=== PATIENT | female | born 1950 | race Caucasian/White ===

== ENCOUNTER 2017-12-03 12:03 | Observation (INO) | payer MEDICARE, OTHER ==
--- NOTE | 2017-12-03 12:28 | ED ---
Hypertension - HPI Summary HPI Summary: This patient is a 67 year old F presenting to [facility] accompanied by Sigfreind her with a chief complaint of dizziness that began 3 days ago. She states along with this she has been experiencing rise and falls in her BP. The patient has had some jaw pain and headache, but no chest pain and rates the pain 2/10 in severity. Symptoms aggravated by nothing. Symptoms alleviated by nothing. Pt is a type II DM and states her glucose was over 200 this am, and this is high for her. Patient reports anxiety, light headedness, tense all over, and mild right sided jaw pain that has been intermittent for years. She also c/o right quadricep weakness that has been intermittent for some time. She had a TEMPLE yesterday that has gotten better but is still present. Patient denies CP, SOB, near syncope, trouble ambulating, and speech difficulty. This morning she had a pulse of 76bpm and 82bpm with walking, she states this morning her BP was 203/106. Dr. Omayra Gil told her to keep a log of her BP. She has the log with her. She states she is stressed about her daughters bridal shower this weekend and this has created anxiety. Her typical systolic is 130-140, per her. Dr. Aceves told her to take 3 x 100mg labetalol (instead of her usual 200mg) when she called for elevated blood pressure greater than 180 sytolic and greater than 110 diastolic. She took that yesterday and her BP was 111 systolic after the medication, and with this BP she was fatigued. She has never had an NE and her last stress test was in [address] George on his office on [facility]. 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 Currently they are watching an inactive mass on her left adrenal. Dr. Gil talked to Dr. Vance in [place] about this adrenal mass and her lab results and he told her she does not have another pheochromocytoma. Pt takes 100mg labetalol BID, 81 mg asa QD, omeprazole 20 mg QD, pravastatin 40 MG, losartan 100 mg, QD. This morning at 0840 she had BG over 200 and took one ER metformin 500 mg. After this her BG was 117 at 1110. Vital signs while in room: HR 81 bpm, BP 187/105. Hx of Lyme disease, pheochromocytoma s/p surg, hematuria, DM 2, HTN, and goiter. Family history of NE, cancer, kidney failure, and CVA. Labetalol TAB* [Trandate TAB*] 150 mg PO BID 08/20/12 [History Confirmed ] Pravastatin Sodium 40 mg PO QPM 08/20/12 [History Confirmed 12/22/14] Ubidecarenone/Vit E Acet [Co Q 10] 100 mg PO BID 08/20/12 [History Confirmed 06/02] metFORMIN* [Glucophage*] 500 mg PO BID 08/20/12 [History Confirmed 12/22/14] Cholecalciferol TAB* [Vitamin D TAB*] 1,000 unit PO EVERY OTHER DAY 11/05/12 [ History Confirmed 12/22/14] EPINEPHrine PEN ADULT(NF) [Epipen ADULT(NF)] 0.3 mg IM DAILY 11/05/12 [History Confirmed 12/22/14] diPHENhydraMINE PO* [Benadryl TAB*] 25 mg PO Q6H PRN 11/05/12 [History Confirmed 12/22/14] Aspirin EC TAB* [Ecotrin EC Low Dose 81 MG*] 81 mg PO DAILY 03/09/13 [History Confirmed 12/22/14] Cyanocobalamin [Vitamin B-12] 1,000 mcg PO EVERY OTHER DAY 03/09/13 [History Confirmed 12/22/14] Manganese 1 tab PO DAILY 03/09/13 [History Confirmed 12/22/14] Milk Thistle-Turmeric [Silymarin] 1 cap PO DAILY 03/09/13 [History Confirmed 06/02] Multivitamins/Minerals TAB* [Thera M Plus TAB*] 1 tab PO DAILY 03/09/13 [ History Confirmed 12/22/14] Vitamin B Complex CAP* [B Complex CAP*] 1 cap PO DAILY 03/09/13 [History Confirmed 12/22/14] Losartan TAB* [Cozaar TAB*] 100 mg PO DAILY 04/26/13 [History Confirmed 12/22/14 ] Iron 45 mg PO EVERY OTHER DAY 05/07/14 [History Confirmed 12/22/14] LORazepam TAB(*) [Ativan TAB(*)] 0.5 mg PO TID PRN 05/07/14 [History Confirmed 12/22/14] - History of Current Complaint Chief Complaint: EDDizziness Stated Complaint: LITE HEADED/TENSE ALL OVER/JAW PAIN Time Seen by Provider: 12/03/17 12:12 Hx Obtained From: Patient, Family/Product Applications Scientist - Onset/Duration: Started Days Ago, Still Present Timing: Constant, Intermittent Reported Blood Pressure Prior To Arrival: 203/106 Aggravating Factor(s): Nothing Alleviating Factor(s): Nothing Associated Signs & Symptoms: Negative - CP, SOB, near syncope, trouble ambulating, and speech difficulty., Anxiety/Stress, Other: - anxiety, light headed, tense all over, and mild right sided jaw pain that has been intermittent for years - Allergies/Home Medications Allergies/Adverse Reactions: Allergies Allergy/AdvReac Type Severity Reaction Status Date / Time Penicillins Allergy Intermediate Unknown Verified 06/11/17 17:53 Reaction Details ciprofloxacin [From Cipro] Allergy Agitation Verified 06/11/17 17:53 Latex, Natural Rubber Allergy Rash And Verified 06/11/17 17:53 Itching Iodinated Contrast- Oral and AdvReac Nausea And Verified 06/11/17 17:53 IV Dye Vomiting basil Allergy Severe Anaphylatic Uncoded 06/10/17 11:51 Shock pomagranate Allergy Mild GI Upset Uncoded 06/10/17 11:51 WASPS Allergy Swelling Uncoded 06/10/17 11:50 lobster AdvReac Intermediate Stomach Uncoded 06/10/17 11:51 Cramps Home Medications: Home Medications Biotin 1 mg PO QPM 12/03/17 [History Confirmed 12/03/17] Cholecalciferol (Vitamin D3) [Vitamin D3] 1,000 unit PO QPM 12/03/17 [History Confirmed 12/03/17] Cyanocobalamin TAB* [Vitamin B12 TAB*] 1,000 mcg PO DAILY 12/03/17 [History Confirmed 12/03/17] Iron 27 mg PO BID 12/03/17 [History Confirmed 12/03/17] Labetalol TAB* [Trandate TAB*] 200 mg PO BID 12/03/17 [History Confirmed ] Losartan TAB* [Cozaar TAB*] 100 mg PO QPM 12/03/17 [History Confirmed 12/03/17] Magnesium Oxide [Magnesium] 250 mg PO QAM 12/03/17 [History Confirmed 12/03/17] Metformin ER (NF) 1,000 mg PO BID 12/03/17 [History Confirmed 12/03/17] Milk Thistle 600 mg PO DAILY 12/03/17 [History Confirmed 12/03/17] Multivitamins/Minerals TAB* [Theragran/minerals TAB*] 1 tab PO DAILY 12/03/17 [ History Confirmed 12/03/17] Omeprazole CAP* [Prilosec CAP* 20 MG] 20 mg PO BEDTIME 12/03/17 [History Confirmed 12/03/17] Pravastatin (NF) [Pravachol (NF)] 40 mg PO QPM 12/03/17 [History Confirmed 12/03] Ubidecarenone [Coenzyme Q10] 200 mg PO DAILY 12/03/17 [History Confirmed ] Vitamin B Complex CAP* [B Complex CAP*] 1 cap PO DAILY 12/03/17 [History Confirmed 12/03/17] metFORMIN* [Glucophage 500 MG TAB *] 500 mg PO DAILY PRN 12/03/17 [History Confirmed 12/03/17] PMH/Surg Hx/FS Hx/Imm Hx Previously Healthy: No Endocrine/Hematology History: Reports: Hx Diabetes Denies: Hx Blood Disorders, Hx Thyroid Disease, Hx Anemia Cardiovascular History: Reports: Hx Angina, Hx Hypertension Denies: Hx Congestive Heart Failure, Hx Coronary Artery Disease, Hx Hypercholesterolemia, Hx Myocardial Infarction, Hx Pacemaker/ICD, Hx Valvular Heart Disease, Other Cardiovascular Problems/Disorders Respiratory History: Reports: Hx Asthma, Hx Chronic Bronchitis - But not in a long time, Hx Pleural Effusion - after pheochromocytoma surgery when "her diaphragm was nicked", Hx Seasonal Allergies GI History: Reports: Hx Gastroesophageal Reflux Disease, Other GI Disorders - Polyps removed from colon. constipation History: Reports: Hx Kidney Infection - 1981, Hx Renal Disease, Other Problems/Disorders - uterine cancer, bladder cyst removal,complete hysterectomy , nephritis, pheo Musculoskeletal History: Reports: Hx Arthritis, Hx Back Problems Denies: Other Musculoskeletal History Sensory History: Reports: Hx Contacts or Glasses Denies: Hx Hearing Aid, Other Sensory Impairments Opthamlomology History: Reports: Hx Contacts or Glasses Denies: Other Sensory Impairments Psychiatric History: Reports: Hx Anxiety - Comes and goes, Hx Depression - but not since she retired, Hx Panic Disorder - ANXIETY Denies: Hx Suicide Attempt, Hx of Violent Episodes Against Others, Hx Substance Abuse, Other Psychiatric Issues/Disorders - Cancer History Cancer Type, Location and Year: UTERINE Hx Chemotherapy: No Hx Radiation Therapy: No - Surgical History Surgery Procedure, Year, and Place: TONSILS. HERNIA AGE 3. TUBAL LIGATION. 2010 HYSTERECTOMY. 2012 RIGHT ADRENAL REMOVED (PHEOCHROMOCYTOMA) Hx Anesthesia Reactions: No - Immunization History Date of Tetanus Vaccine: Up to date Date of Influenza Vaccine: Fall 2012 Infectious Disease History: No Infectious Disease History: Denies: Traveled Outside the [place] in Last 30 Days - Family History Known Family History: Positive: Cardiac Disease - father of NE at 69 , Renal Disease, Other - CVA and cancer - Social History Lives: With Family Alcohol Use: None Substance Use Type: Reports: None Smoking Status (MU): Never Smoked Tobacco Review of Systems Positive: Fatigue Negative: Blurred Vision Positive: Other - jaw pain on right, recent second molar extraction right lower at site of pain Positive: Other - elevated BP . Negative: Chest Pain Negative: Shortness Of Breath Positive: Other - tense all over, and mild intermittent right sided jaw Neurological: Negative - trouble ambulating or speech difficulty , Other - dizziness and light headedness Positive: Headache, Weakness - right thigh for awhile . Negative: Syncope Positive: Anxious All Other Systems Reviewed And Are Negative: Yes Physical Exam - Summary Physical Exam Summary: Appearance: Well-appearing, minimal pain distress, well-nourished, hypertensive Skin: Warm, color reflects adequate perfusion, dry Head: Normal Head/Face inspection, atraumatic Eyes: Conjunctiva clear, Pupils 3mm and reactive, EOMI, no nystagmus ENT: Normal inspection, TM's are normal, moist mucosa, site of second molar extraction right lower is not tender, inflamed, or swollen and there is no drainage. No jaw swelling or redness Neck: Supple, no nodes, no JVD Respiratory: Lungs clear, normal breath sounds, no respiratory distress Cardio: RRR, No murmur, pulses normal, brisk capillary refill Abdomen: Soft, nontender Bowel sounds: Present Musculoskeletal: Strength Intact/ROM intact, no calf tenderness, no edema. Psychological: states she is anxious. Neuro: A&O x3, CN II-XII intact, motor function 5/5, sensation intact, cerebellar normal Triage Information Reviewed: Yes Vital Signs On Initial Exam: Initial Vitals Temp Pulse Resp BP Pulse Ox 97.8 F 87 16 142/87 100 12/03/17 12:09 12/03/17 12:09 12/03/17 12:09 12/03/17 12:09 12/03/17 12:09 Vital Signs Reviewed: Yes - [place] Coma Scale Best Eye Response: 4 - Spontaneous Best Motor Response: 6 - Obeys Commands Best Verbal Response: 5 - Oriented Coma Scale Total: 15 Diagnostics - Vital Signs Vital Signs Temp Pulse Resp BP Pulse Ox 12/03/17 12:09 97.8 F 87 16 142/87 100 - Laboratory Result Diagrams: 12/04/17 06:41 12/04/17 06:41 Lab Statement: Any lab studies that have been ordered have been reviewed, and results considered in the medical decision making process. - Radiology CXR Radiology Interpretation Completed By: Radiologist - SMALL RIGHT PLEURAL EFFUSION ED physician has reviewed this radiology report. - CT CT brain CT Interpretation Completed By: Radiologist - NO EVIDENCE FOR ACUTE INTRACRANIAL ABNORMALITY. ED physician has reviewed this radiology report. - EKG 12:36 Cardiac Rate: NL EKG Rhythm: Sinus Rhythm - at [address] Segment: Non-Specific Ectopy: None EKG Interpretation: nml AV/IV CT, nml QTc, and nml axis EKG Comparison: No Significant Change - No change from EKG done on 12-22-14. 1626 Cardiac Rate: NL EKG Rhythm: Sinus Rhythm - at [address] Segment: Non-Specific Ectopy: None EKG Interpretation: nml AV/IV CT, nml QTc, and nml axis. No stemi EKG Comparison: No Significant Change - from earlier today, done when elevated troponin returned. Re-Evaluation - Re-Evaluation First Eval Re-Evaluation Time: 13:36 Change: Improved Comment: BP 138/85, pulse 75. I informed the patient of all test results. I also sent out a call to Dr. Gil at this time. Second Eval Re-Evaluation Time: 14:01 Change: Unchanged Comment: Patient feels tired and still has right jaw pain. I looked in her mouth , there is a dental extraction second molar on right lower mandible. There are no signs of infection and the jaw pain is not reproducible when touching that site. She rates the pain 1/10. BP is 158/85 Third Eval Re-Evaluation Time: 15:15 Change: Unchanged Comment: She states during her pheo operation, she had pleural fluid drained from her because "they nicked her diaphragm". Pulse of 77. O2 sat 98%. She has no CP, SOB, or fever. BP of 191/98. Fourth Eval Re-Evaluation Time: 15:46 Change: Unchanged Comment: BP 180/95 and pulse 77. She is anxious and I discussed giving her amlodipine now in the ED and starting it as a new med, per Dr. Gil. She has no jaw pain or CP. Fifth Eval Re-Evaluation Time: 16:28 Change: Worse Comment: BP is 204/120 and pulse is 80 BPM. Pt denies CP and jaw pain. Pt is informed of the elevated troponin and plan to admit. Hypertension Course/Dx - Course Assessment/Plan: Pt comes in with elevated BP, jaw pain, and dizziness. An EKG at 12:36 reveals nml AV/IV CT, nml QTc, and nml axis. No change from EKG done on 12-22-14. A second EKG at 1626 reveals nml AV/IV CT, nml QTc, and nml axis. No STEMI. CXR reveals, per radiologist, SMALL RIGHT PLEURAL EFFUSION. Pt has a hx of right pleural effusion at time of pheo operation in 2012. CT Brain reveals, per radiologist, NO EVIDENCE FOR ACUTE INTRACRANIAL ABNORMALITY. Aware of lactic of 2.1 at 1308. Aware of trop of 0.08 at 1618. Given amlodipine 5mg for HTN. Her second troponin is elevated so pt will be admitted for possible unstable angina, ACS, or angina equivalent. It is not a STEMI. Her HTN will need additional monitoring and control also. COURSE: We discussed patient care with Dr. Gil I informed her of the patients case. She recommended review previous CXRs and she would like to be informed of the radiologists opinion of the comparisons. We discussed patient care with Dr Smyth and he states the pleural effusion is new. He did compare it to prior CXRs. I discussed patient care with Dr. Gil I informed her that the pleural effusion is new and inquired about admission. She would like to know the procalcitonin and CRP results, when the are done. (They are both normal). I discussed patient care with Dr. Gil and informed her of the patients lab values. She suggested starting her on amlodipine 5 mg and planned to see her in the office on 12-05-17. Then pt's second troponin returned and it was elevated so discussed with Dr. Gil who recommends admit hospitalist and she will see pt in the am. The pt is admitted with HTN urgency, elevated troponin, dizziness, right pleural effusion, jaw pain, eval for ACS, unstable angina. I discussed patient care with Dr. Jay and she has accepted the patient for admission. Patient will be admitted to Dr. Jay. The patient is agreeable with this plan - Diagnoses Differential Diagnosis/HQI PQRI: Angina, Cerebral Bleed, Hypertension, Hypertensive Urgency, Myocardial Infarction Provider Diagnoses: Hypertensive urgency, Jaw pain, Elevated troponin, Dizziness, Pleural effusion , right - Physician Notifications Discussed Care Of Patient With: Jeri Gil Time Discussed With Above Provider: 13:38 Instructed by Provider To: Other - We discussed patient care with Dr. Gil I informed her of the patients case. She recommended review previous CXRs and she would like to be informed of the radiologists opinion of the comparisons. - Critical Care Time Critical Care Time: 30-74 min Discharge - Sign-Out/Discharge Documenting (check all that apply): Patient Departure - admit - Discharge Plan Condition: Stable Disposition: ADMITTED TO [facility] - Billing Disposition and Condition Condition: STABLE Disposition: Admitted to [facility] - Attestation Statements Document Initiated by Bertha: Yes Documenting Scribe: Serafin Lozano Provider For Whom Bertha is Documenting (Include Credential): Dr. Wen Seay MD Scribe Attestation: Serafin Yepez screctored for Dr. Wen Seay MD on 12/05/17 at 1757. Scribe Documentation Reviewed: Yes Provider Attestation: The documentation as recorded by the Serafin fuentes accurately reflects the service I personally performed and the decisions made by me, Dr. Wen Seay MD Consult Consult: 2099 We discussed patient care with Dr Smyth and he states the pleural effusion is new. He did compare it to prior CXRs. 1501 I discussed patient care with Dr. Gil I informed her that the pleural effusion is new and inquired about admission. She would like to know the procalcitonin and CRP results, when they are done. (They are normal) 1534 I discussed patient care with Dr. Gil and informed her of the patient s lab values. She suggested starting her on amlodipine 5 mg and she planned to see her in the office on 12-05-17. 1623 I discussed elevated troponin with Dr. Gil. She recommends admit hospitalist and she will see pt in the am. 1624 I discussed patient care with Dr. Jay and she has accepted the patient for admission.
[2017-12-03 12:48] LABS: ABS Basophils 0.1 10^3/ul (0-0.2); ABS Eosinophils 0.2 10^3/ul (0-0.6); ABS Lymphocytes 1.5 10^3/ul (1.0-4.8); ABS Monocytes 0.5 10^3/ul (0-0.8); ABS Neutrophils 3.5 10^3/ul (1.5-7.7); ABS Nucleated RBC 0 10^3/ul; Eosinophil % 3.9 % (0-6); Hematocrit 34 % (35-47); Hemoglobin 11.4 g/dl (12.0-16.0); Lymphocyte % 25.4 % (25-47); Mean Corpuscular HGB Conc 33 g/dl (31-36); Mean Corpuscular Hemoglobin 27 pg (27-31); Mean Corpuscular Volume 80 fL (80-97); Mean Platelet Volume 8.2 um3 (7.4-10.4); Nucleated Red Blood Cells % 0.1; Platelet Count 230 10^3/ul (150-450); Red Blood Count 4.27 10^6/ul (4.00-5.40); Red Cell Distribution Width 15 % (10.5-15); White Blood Count 5.8 10^3/ul (3.5-10.8)
[2017-12-03 13:06] LABS: EGFR Non-African American 51.4 (>60)
--- NOTE | 2017-12-03 13:12 | RAD ---
INDICATION: Hypertensive urgency, dizziness. COMPARISON: Comparison is made with a prior CT of the brain from July 22, 2008. TECHNIQUE: Contiguous axial sections of the brain were obtained from the skull base to the vertex without contrast. FINDINGS: The ventricles, cisterns and sulci are within normal limits. No significant focal abnormality or mass effect is seen. There is no evidence for hemorrhage. No significant focal osseous abnormality is seen. The visualized portion of the paranasal sinuses and mastoid air cells appear clear. IMPRESSION: NO EVIDENCE FOR ACUTE INTRACRANIAL ABNORMALITY.
--- NOTE | 2017-12-03 13:30 | RAD ---
HISTORY: HTN COMPARISONS: None VIEWS: 1: frontal AP view of the chest at 12:55 PM FINDINGS: LINES AND TUBES: None. CARDIOMEDIASTINAL SILHOUETTE: The cardiomediastinal silhouette is normal for portable technique. PLEURA: There is blunting of the right costophrenic angle. LUNG PARENCHYMA: The lungs are clear. ABDOMEN: The upper abdomen is clear. There is no subphrenic gas. BONES AND SOFT TISSUES: No bone or soft tissue abnormalities are noted. IMPRESSION: SMALL RIGHT PLEURAL EFFUSION
[2017-12-03] MEDS ORDERED: amLODIPine TAB* 5 MG PO ONE (15:39)
[2017-12-03 15:47] LABS: Urine Appearance Cloudy; Urine Blood Negative (Negative); Urine Color Yellow; Urine Ketones Negative (Negative); Urine Protein Negative (Negative); Urine Red Blood Cell Trace(0-2/hpf) (Absent); Urine Specific Gravity 1.009 (1.010-1.030); Urine Urobilinogen Negative (Negative); Urine White Blood Cell Trace(0-5/hpf) (Absent)
[2017-12-03] MEDS ORDERED: Morphine INJ* 4 MG/ML 1 ML SYRINGE (NEW SYRINGE VERSION) IV PRN (17:41)
[2017-12-03] MEDS ORDERED: Al Hydrox/Mg Hydrox/Simet LIQ* 30 ML UDC PO PRN (17:41)
[2017-12-03] MEDS ORDERED: Albuterol 2.5 MG/3 ML NEB.SOL* (0.083%) INH PRN (17:41)
[2017-12-03] MEDS ORDERED: Ondansetron INJ* 2 MG/ML VIAL IV PRN (17:41)
[2017-12-03] MEDS ORDERED: Acetaminophen TAB* 325 MG PO PRN (17:41)
[2017-12-03] MEDS ORDERED: Magnesium Hydroxide LIQ* 30 ML UDC PO PRN (17:41)
[2017-12-03] MEDS ORDERED: Nitroglycerin TAB 0.4 MG* 0.4 MG TAB SL PRN (17:46)
[2017-12-03] MEDS ORDERED: LORazepam TAB(*) 0.5 MG PO PRN (17:47)
[2017-12-03] MEDS ORDERED: diPHENhydraMINE PO* 25 MG PO PRN (17:47)
[2017-12-03] MEDS ORDERED: hydrALAZINE IV* 20 MG/ML VIAL IV SLOW PU PRN ×2 (17:51→23:00)
[2017-12-03] MEDS ORDERED: hydrALAZINE IV* 20 MG/ML VIAL ONE (17:58)
[2017-12-03] MEDS ORDERED: Losartan TAB* 25 MG PO SCH (18:00)
[2017-12-03] MEDS ORDERED: Atorvastatin* 10 MG TAB PO SCH (18:00)
[2017-12-03] MEDS ORDERED: Dextrose 50% Syringe 50 ML* 25 GM/50 ML SYRINGE IV PUSH PRN (20:52)
[2017-12-03] MEDS ORDERED: Omeprazole CAP* 20 MG PO SCH (21:00)
[2017-12-03] MEDS: Labetalol TAB* 100 MG PO SCH (21:35)
[2017-12-03] MEDS: Heparin VIAL(*) 5000 UNITS/ML VIAL (FIVE THOUSAND) SUBCUT SCH (21:35)
--- NOTE | 2017-12-03 22:06 | HP ---
AMENDED REPORT NOW INCLUDES DESIGNATED COSIGNER CC: Dr. Gil * ADMISSION HISTORY AND PHYSICAL: DATE OF ADMISSION: 12/03/17 PATIENT OF ATTENDING HOSPITALIST: Dr. Deanne Jay.* (DICTATED BY TAYE SIEGEL) PRIMARY CARE PROVIDER: Jeri Gil MD. CHIEF COMPLAINT: Hypertension, dizziness, anxiety, and chest pain. HISTORY OF PRESENT ILLNESS: Mr. 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 She presented to the emergency room earlier today stating increasing blood pressure over the weekend as well as feeling dizzy, anxious with chest tightness. The patient has a prior history of pheochromocytoma for which she follows up with an adrenal gland specialist in [facility]. Dr. Seay from the emergency room had contacted her information coordinator, who confirmed that the patient in her last check up has no evidence of pheochromocytoma at the present time. She reports that for the past few days, she has been under some stress with her daughter getting and they are planning for her bridal shower and other things related. She had noticed that her blood pressure has been "creeping up" over the weekend for which she made an appointment to see Dr. Gil later this week. However, earlier today, she started to feel a little dizzy with some increased anxiety and chest tightness for which she came to the emergency room for further evaluation. She had laboratory workup that revealed stable CBC and stable chemistry panel with the exception of slightly elevated lactic acids. She had an EKG that showed normal sinus rhythm without any significant ST changes. She also had laboratory workup revealing elevated troponin from 0 on the first draw to 0.08 on the second draw for which we were asked to see the patient for further evaluation and to consider admission to rule out any possibility of acute coronary syndrome. The patient herself denies any chest pain at the presentation, however, she continued to have hypertension despite given her a dose of amlodipine in the emergency room. I had a conversation with Dr. Gil and we will go ahead and admit the patient for observation to telemetry unit to trend her troponin. I will keep her n.p.o. after midnight for possibility of stress test and also to monitor her blood pressure. PAST MEDICAL HISTORY: As mentioned above, significant for hypertension, hyperlipidemia, atrial fibrillation, GERD, endometrial cancer, status post hysterectomy; pheochromocytoma, status post right adrenalectomy in 2013. She also has history of uhw-rwkpllg-kdjzxzmor diabetes mellitus. PAST SURGICAL HISTORY: As mentioned above, significant for hysterectomy and adrenalectomy. CURRENT MEDICATIONS: Her medications at home include: 1. Aspirin 81 mg p.o. daily. 2. Biotin 1 mg p.o. q. daily. 3. Vitamin D3, 1000 units p.o. daily. 4. Vitamin B12, 1000 mcg p.o. daily. 5. Benadryl 25 mg p.o. q.6 hours as needed for itching. 6. Epinephrine Pen as needed for allergic reactions. 7. Iron 27 mg p.o. b.i.d. 8. Labetalol 200 mg p.o. b.i.d. 9. Ativan 0.5 mg p.o. t.i.d. as needed for anxiety. 10. Losartan 100 mg p.o. q.h.s. 11. Magnesium oxide 250 mg p.o. daily. 12. Metformin 1000 mg p.o. b.i.d. 13. Multivitamins with minerals 1 tablet p.o. daily. 14. Omeprazole 20 mg p.o. q.h.s. 15. Pravastatin 40 mg p.o. q. daily. 16. Coenzyme Q10 200 mg p.o. daily. 17. Vitamin B complex 1 cap p.o. daily. ALLERGIES: Multiple including PENICILLIN, CIPROFLOXACIN, LATEX, and NATURAL RUBBER. FAMILY HISTORY: Reviewed and noncontributory. SOCIAL HISTORY: The patient is a nonsmoker, who denies alcohol intake or illicit drug use. She is , lives with her , who is her healthcare proxy and she wishes to be a full code. REVIEW OF SYSTEMS: See HPI, otherwise a 12 points review of systems were examined and they were essentially negative. PHYSICAL EXAMINATION GENERAL: She is an upper-middle aged female, appear slightly anxious, but in no acute distress or discomfort at the time of admission. VITAL SIGNS: Revealed blood pressure of 184/113, pulse of 76, temperature of 97.8, respirations of 15 with O2 sat of 96% on room air. HEENT: Head is normocephalic, atraumatic. Sclerae anicteric. PERRLA. EOMs intact. Oropharynx is pink and moist. NECK: Supple. Trachea midline. No cervical adenopathy, thyromegaly, or JVD. LUNGS: Clear to auscultation bilaterally. HEART: Regular rate and rhythm. Normal S1 and S2 without rubs, murmurs, or gallops. BACK: With normal curvature. No CVA tenderness. BREAST EXAM: Deferred at this time. ABDOMEN: Soft, nontender, and nondistended. No hernias, masses, or hepatosplenomegaly. RECTAL: Exam deferred at this time. EXTREMITIES: Without cyanosis, clubbing, or edema. NEUROLOGIC: She is awake, alert, and oriented x3. Handgrip is equal bilaterally. Sensation is intact and tongue was midline. LABORATORY DATA: Laboratory workup, CBC with white count of 5800, hemoglobin 11.4, hematocrit of 34, and platelets of 230. Chemistry panel with sodium of 141, potassium 4.6, chloride 108, CO2 25, BUN of 24, and creatinine of 0.16, which appears to be at her baseline. Glucose 127, lactic acid 2.1. LFTs within normal limits. C-reactive protein normal at 1.49. Troponin 0 on the first draw around 1300, and then spiked up to 0.08 at 1600. TSH is 1.69 and T4 thyroxine is 9.2. ACCESSORY DIAGNOSTIC DATA: Chest x-ray without any acute cardiopulmonary problems. Brain CT with intracranial hemorrhage. An EKG with normal sinus rhythm. No ST changes. IMPRESSION: A 67-year-old female with past medical history significant hypertension, hyperlipidemia, diabetes mellitus, and history of pheochromocytoma , status post adrenalectomy 5 years ago, who presented to the emergency room with hypertensive urgency, dizziness as well as intermittent chest pain, will be admitted to the hospitalist services to telemetry unit for the following. ASSESSMENT AND PLAN: 1. Chest pain. The patient had some intermittent chest tightness prior to presentation to the emergency room. She had multiple stress tests in the remote past including a cardiac catheterization prior to her adrenalectomy that revealed patent coronary vessels. I suspect her elevated troponin is likely demand ischemia related to her hypertensive urgency. I will trend her troponin. Repeat her EKG. Keep her n.p.o. over night for Dr. Gil to reevaluate in the morning and see if she need to arrange for a stress test. I will also provide nitroglycerin and morphine as needed for her chest discomfort. She appears to be stable at the time of admission with no further complaint of chest pain. 2. Hypertensive urgency. The patient continued to be hypertensive in the emergency room and we will provide both either labetalol or hydralazine to be taken as needed for systolic blood pressure above 160 and keep her on all her home medication. Her CT scan showed no evidence of any intracranial bleed and we will continue to monitor her closely in the telemetry unit. 3. Hyperlipidemia. I will continue her statin therapy. 4. Yjb-rdmwfqa-bmftvqdyl diabetes mellitus. I will hold her metformin for the time being and continue to do glucose checks. We will provide lispro sliding scale as needed since I will keep her n.p.o. after midnight. 5. DVT prophylaxis. She is a high risk, will be covered with subcu heparin. 6. Code status. She wishes to be a full code. 7. Disposition: Admit to telemetry unit for close observation, monitoring of hypertensive urgency and chest pain, trending her troponin, repeat EKG in the morning and keep her n.p.o. after midnight. TIME SPENT: Approximately 60 minutes spent admitting this patient for which greater than 50% of that time taking history and performing physical exam. I went on and discussed the case with my attending, who agreed to plan of care. TAYE SIEGEL [id number]/[facility] #: [id number] MERI
[2017-12-04] MEDS: Heparin VIAL(*) 5000 UNITS/ML VIAL (FIVE THOUSAND) SUBCUT SCH ×2 (06:31→13:02)
[2017-12-04 07:08] LABS: ABS Basophils 0.1 10^3/ul (0-0.2); ABS Eosinophils 0.2 10^3/ul (0-0.6); ABS Lymphocytes 1.6 10^3/ul (1.0-4.8); ABS Monocytes 0.6 10^3/ul (0-0.8); ABS Neutrophils 3.2 10^3/ul (1.5-7.7); ABS Nucleated RBC 0 10^3/ul; Eosinophil % 3.6 % (0-6); Hematocrit 32 % (35-47); Hemoglobin 10.6 g/dl (12.0-16.0); Mean Corpuscular HGB Conc 33 g/dl (31-36); Mean Corpuscular Hemoglobin 26 pg (27-31); Mean Corpuscular Volume 80 fL (80-97); Mean Platelet Volume 8.3 um3 (7.4-10.4); Nucleated Red Blood Cells % 0.2; Platelet Count 219 10^3/ul (150-450); Red Cell Distribution Width 14 % (10.5-15); White Blood Count 5.7 10^3/ul (3.5-10.8)
[2017-12-04 07:38] LABS: EGFR Non-African American 52.5 (>60)
[2017-12-04] MEDS ORDERED: Aspirin EC TAB* 81 MG TAB.EC PO SCH (09:00)
[2017-12-04] MEDS ORDERED: Cyanocobalamin TAB* 500 MCG PO SCH (09:00)
[2017-12-04] MEDS ORDERED: Multivitamins/Minerals TAB PO SCH (09:00)
[2017-12-04] MEDS: Insulin LISPRO* 1 UNITS UNIT SUBCUT SCH ×2 (10:09→12:52)
[2017-12-04] MEDS: Labetalol TAB* 100 MG PO SCH (10:10)
[2017-12-04] MEDS ORDERED: amLODIPine TAB* 5 MG PO SCH (11:00)
[2017-12-04 14:14] VITALS: BP 124/59
--- NOTE | 2017-12-06 18:12 | DS ---
DISCHARGE SUMMARY: DATE OF ADMISSION: 12/03/17 DATE OF DISCHARGE: 12/04/17 DISCHARGE DIAGNOSES: 1. Uncontrolled hypertension. 2. History of pheochromocytoma. 3. Type 2 diabetes mellitus. 4. Hyperlipidemia. 5. Gastroesophageal reflux disease. 6. History of endometrial cancer. 7. Status post hysterectomy. 8. Status post adrenalectomy of the right adrenal gland. HISTORY: Carmen Box is a 67-year-old woman admitted with uncontrolled hypertension. Please see the dictated admission note for details of the present illness, past medical history, family history, social and personal history, review of systems, and physical examination. When I spoke with the patient on the day following admission, she told me that she presented to the emergency room because of elevated blood pressure. She had taken her blood pressure, which was 168/97, pulse 77 that morning with the blood sugar of 203. She then took 1 metformin, ate a light yogurt. She went back to bed and when she got up at 11 a.m., her blood pressure was 190/100. She took her pills at 11: 10, her blood sugar was 117. After eating 2 eggs, toast, mandarin orange, she felt tense, lightheaded, and her blood pressure was 200/100 plus, so she went to the emergency room. Her recent blood pressures on 11/27/17 had been 150/74, 135/73, 147/93 was that usually as before she takes pills. Blood pressure before then was occasionally in the 160s, usually in the 140s. She feels stressed this week about upcoming shower for her daughter and that her had not booked the flights for the daughter's wedding in [place]. She had eaten salty soup and cheese the night before last. She denied chest pain to me. She did report anxiety and chest tightness when she came to the emergency room. In the emergency room, she had initial troponin of 0, repeated was 0.08, which was actually a lab error so that one was repeated again, it was actually 0 and then there was a 3rd troponin that was 0 as well. LABORATORY DATA: CBC: WBC 5.8, H and H 11.4/34, MCV 80, PLT 230K. Repeat CBC on 12/04/17, WBC 5.7, H and H 10.6/32, MCV 80. INR 0.90, PTT 41.6, this is more elevated than it had been on previous occasions when it had been checked. D-dimer was less than 200. Chemistries: Sodium 141, potassium 4.6, chloride 108, CO2 of 25, BUN and creatinine 24/1.06, glucose 127, lactic acid 2.1, rest of the comprehensive metabolic panel was within normal limits. C-reactive protein was normal at 1.48. BNP was normal at 48. CK was normal at 59. TSH normal at 1.69. Procalcitonin was normal less than 0.01. Urinalysis, yellow cloudy, specific gravity 1.09, leukocyte esterase was trace, rbc's trace, wbc's trace, epithelial cells present. Urine culture was no growth. IMAGING: Chest x-ray on 12/03/17 showed small right pleural effusion, which appeared to be new blunting of the right costophrenic angle. This will have to be followed up as an outpatient. Brain CT on 12/03/17 showed no evidence of acute intracranial abnormality. EKG on 12/03/17 at 12:25 showed sinus normal rhythm, no significant changes. EKG repeat later on the day showed sinus rhythm , considered left and the right atrial, otherwise normal. EKG 12/04/17, showed considered right atrial enlargement, otherwise normal EKG, no change. Telemetry monitoring revealed normal sinus rhythm. HOSPITAL COURSE: The patient was admitted. She was placed on telemetry. Troponins were trended and were negative. Her blood pressure started at 142/87 , went as high as 187/111 in the emergency room. Later in the afternoon, it went up to 203/95. It subsequently came down overnight and was 124/59 at the time of discharge. It was felt that her chest tightness was due to anxiety. She had had negative stress test in the past and she had had normal coronaries prior to her adrenalectomy. It is felt that she did not another stress test. She was ordered for labetalol and hydralazine p.r.n. elevated blood pressure. Her statin was continued. Her metformin was held and her blood sugars were followed with lispro sliding scale. She was full code. On the day following admission, she had received a dose of amlodipine in the emergency room. She said that she has felt constipated with calcium channel blockers in the past, but was willing to try amlodipine. It was felt that she could be discharged. On that day, she wanted to pack to go to her daughter's shower. She planned to leave the following day. She did receive 2 doses of hydralazine while in the hospital. She received a dose of lorazepam. She did not receive nitroglycerin. DISCHARGE MEDICATIONS: At the time of discharge, she is to be on the following medications: 1. Vitamin B complex 1 cap a day. 2. Coenzyme Q10 200 mg daily. 3. Pravastatin 40 mg daily. 4. Omeprazole 20 mg daily. 5. Multivitamins 1 daily. 6. Milk thistle 500 mg daily. 7. Metformin 1000 mg twice a day. 8. Magnesium oxide 250 mg daily. 9. Losartan 100 mg daily. 10. Lorazepam 0.5 mg t.i.d. p.r.n. 11. Labetalol 200 mg b.i.d. 12. Iron 27 mg b.i.d. 13. EpiPen as needed. 14. B12 500 mcg daily. 15. Vitamin D 2000 units daily. 16. Biotin 1 mg daily. 17. Baby aspirin 81 mg daily. DISCHARGE INSTRUCTIONS: She is to follow up with me in about a week. Diet is usual. She is to avoid very salty foods. [id number]/[facility] #: [id number] [facility]ER HOSPITALTerri
== END 2017-12-04 15:30 | disposition home or self-care (01) ==
LOC: ED 12:03 → MEDTELE 17:41
PROVIDERS: ADMIT Hospitalist; ATTEND Internal Medicine Geriatric Medicine
DX: I16.0 Hypertensive urgency (principal); I10 Essential (primary) hypertension; J90 Pleural effusion, not elsewhere classified; R42 Dizziness and giddiness; R07.9 Chest pain, unspecified; F41.9 Anxiety disorder, unspecified; E78.5 Hyperlipidemia, unspecified; I48.91 Unspecified atrial fibrillation; K21.9 Gastro-esophageal reflux disease without esophagitis; Z85.42 Personal history of malignant neoplasm of other parts of uterus; E11.9 Type 2 diabetes mellitus without complications; D35.00 Benign neoplasm of unspecified adrenal gland; Z90.710 Acquired absence of both cervix and uterus; Z90.89 Acquired absence of other organs; Z88.0 Allergy status to penicillin; R53.83 Other fatigue
CPT/HCPCS: 36415; 70450; 71045; 80048; 80053; 80061; 81003; 81015; 82550; 82553; 83605; 83880; 84145; 84436; 84443; 84484; 85025; 85379; 85610; 85730; 86140; 87086; 93005; 96374; 96375; 99284; A9270-GY; G0378; J0360; J1644

== ENCOUNTER 2018-05-11 17:37 | Observation (INO) | payer MEDICARE, OTHER ==
--- OUTSIDE RECORDS SUMMARY | 2018-05-11 17:46 | XMS REPORT | Continuity of Care Document ---
:1950 External Reference #:[id number] Author Name Fredrick Galicia DO Address [address] [facility] [place] [address] Care Team Providers Name Role Phone Jeri Gil MD Care Team Information Extension Service Specialist In Charge Unavailable Jeri Gil MD Primary Care Physician Unavailable Payers Date Identification Numbers Payment Provider Subscriber Policy Number: [id number] Medicare Carmen Box PayID: [id number] [facility] [address] [place] [address] Policy Number: [id number] [facility] Carmen Box PayID: [id number] [address] [place] [address] Advance Directives Description No Information Available Problems Date Description Provider Status Onset: 09/09/2012 Essential hypertension REYNALDO Zepeda Active Onset: 09/09/2012 Type 2 diabetes mellitus REYNALDO Zepeda Active Family History Description No Information Available Social History Type Date Description Comments Sex Unknown ETOH Use Denies alcohol use Tobacco Use Start: Unknown Patient has never smoked Smoking Status Reviewed: 05/05/18 Patient has never smoked Allergies, Adverse Reactions, Alerts Date Description Reaction Status Severity Comments 09/09/2012 Penicillin Active 03/06/2018 Penicillin V Potassium Active 09/09/2012 Cipro Active 03/06/2018 Pomegranate Fruit Extract Active 03/30/2013 Shellfish Active 03/06/2018 Wasp Venoms Active 03/30/2013 Basil Active 03/30/2013 Pomegranite Active 05/05/2018 Dairy Active 05/05/2018 Latex Active 05/05/2018 Ragweed Active Medications Medication Date Status Form Strength Qnty SIG Indications Ordering Provider Escitalopram 02/24/ Active Tablets 5mg 90tab Louise, Oxalate 2019 s Jeri Garrett MD Amlodipine 12/10/ Active Tablets 2.5mg 60tab Gil, Besylate 2017 s Jeri Garrett MD Epinephrine 11/01/ Active Solution 0.3mg/0.3M 2unit Gil2017 Auto-Injec L lara North MD Omeprazole 11/23/ Active Capsules 20.6(20Bas 90cap Gil, Magnesium 2016 DR kelley) mg s Jeri Garrett MD Lorazepam 10/30/ Active Tablets 0.5mg 30tab Gil, 2015 s Jeri Garrett MD Metformin HCL ER 04/27/ Active Tablets ER 500mg 360ta Gil, 2015 24HR bs Jeri Garrett MD Labetalol HCL 07/28/ Active Tablets 100mg 60tab Gil, 2013 s Jeri Garrett MD Coenzyme Q-10 / Active Capsules 100mg Unknown 0000 Docusate Sodium / Active Capsules 100mg Unknown 0000 Metformin HCL / Active Tablets 1000mg 180ta every day Unknown 0000 bs Epipen 2-Rojas / Active Device 0.3mg/0.3M 1unit as Unknown 0000 L s directed Benadryl Allergy / Active Capsules 25mg prn Unknown 0000 Lorazepam / Active Tablets 0.5mg Unknown 0000 Meclizine HCL / Active Tablets 25mg 50tab take 1 to Unknown 0000 s 2 tablets by mouth every 6 hours if needed Dicyclomine HCL / Active Tablets 20mg 90tab 1 tab by Unknown 0000 s mouth three times a day as needed Pravastatin / Active Tablets 40mg 1 po qd Unknown Sodium 0000 Coenzyme Q10 / Active Capsules 100mg 1caps Gil, 0000 Jeri Garrett MD Melatonin / Active Tablets 1mg 1tabs Gil, 0000 Jeri Garrett MD Acetaminophen / Active Tablets 325mg Gil, 0000 Jeri Garrett MD Vitamin B-12 / Active Tablets 1000mcg 90tab Gil, 0000 s Jeri Garrett MD Pronutrients / Active Capsules 1000Unit 1caps Gil, Vitamin D3 0000 Jeri Garrett MD Diphenhydramine / Active Tablets 25mg Gil, HCL 0000 Jeri Garrett MD Aspirin 81 Low / Active Chewtabs 81mg 30uni Gil, Dose 0000 ts Jeri Garrett MD Ra Turmeric 00/00/ Active Capsules 500mg Gil, 0000 Jeri Garrett MD Ferrous Gluconate / Active Tablets 240(27Fe) 1tabs Gil, 0000 mg Jeri Garrett MD Losartan / Active Tablets 100mg 30tab Gil, Potassium 0000 s Jeri Garrett MD Biotin / Active Tablets 300mcg Gil, 0000 Jeri Garrett MD Pravastatin 10/23/ Hx Tablets 40mg 90tab Gil, Sodium 2013 - s Jeri Garrett, 2018 Nexium 09/09/ Hx Capsules 40mg 30cap 1 po qd [place] 2012 - DR alma Garcia, 03/30/ FITTER / WELDER-C 2013 Oxycodone HCL / Hx Capsules 5mg 90cap 1 po tid Unknown 0000 - s prn pain 2013 Ondansetron HCL / Hx Tablets 4mg 1 tab by Unknown 0000 - mouth three 2019 times a day as needed Pravastatin / Hx Tablets 10mg Unknown Sodium 0000 - 2013 Oxycontin / Hx Tablets ER 20mg Unknown 0000 - 12HR 2013 Labetalol HCL / Hx Tablets 100mg Unknown 0000 - 2018 Immunizations Description No Information Available Vital Signs Date Vital Result Comment 05/05/2018 2:09pm Height 64.5 inches 5'4.50" Weight 170.00 lb BP Systolic 115 mmHg BP Diastolic 62 mmHg Heart Rate 68 /min BMI (Body Mass Index) 28.7 kg/m2 03/30/2013 2:58pm Height 64.5 inches 5'4.50" Weight 171.00 lb BP Systolic 144 mmHg BP Diastolic 94 mmHg Heart Rate 72 /min BMI (Body Mass Index) 28.9 kg/m2 10/10/2012 1:00pm Height 64.5 inches 5'4.50" Weight 157.00 lb BP Systolic 124 mmHg BP Diastolic 76 mmHg Heart Rate 80 /min BMI (Body Mass Index) 26.5 kg/m2 09/09/2012 2:01pm Height 64.5 inches 5'4.50" Weight 161.00 lb BP Systolic 126 mmHg BP Diastolic 70 mmHg Heart Rate 88 /min BMI (Body Mass Index) 27.2 kg/m2 Results Test Date Facility Test Result H/L Range Note Laboratory test 02/24/2018 N2N/CCD Import Abs 0.1 10_3/ul IND finding Basophils: 0.1 10 3/ul 02/24/2018 Abs Eosinophils: 0.2 10 3/ul 02/24/2018 0.2 10_3/ul IND Abs Lymphocytes: 1.5 10 3/ul 02/24/2018 1.5 10_3/ul IND Abs Monocytes: 0.6 10 3/ul 02/24/2018 0.6 10_3/ul IND Abs Neutrophils: 4.3 10 3/ul 02/24/2018 4.3 10_3/ul IND Abs Nucleated RBC: 0 10 3/ul 02/24/2018 0 10_3/ul IND Advanced Directives: Patient has Patient has Advanced Directives on IND Advanced Directives on file : at home file : at home 02/24/2018 Albumin/Globulin Ratio: 2.1 02/24/2018 2.1 IND Albumin: 4.4 G/DL 02/24/2018 4.4 g/dL IND Alkaline Phosphatase: 58 U/L 02/24/2018 58 U/L IND Alt: 47 U/L 02/24/2018 47 U/L IND Anion Gap: 6 Mmol/L 02/24/2018 6 mmol/L IND Ast: 33 U/L 02/24/2018 33 U/L IND BUN/Creatinine Ratio: 23.5 02/24/2018 23.5 IND Basophil %: 1.3 % 02/24/2018 1.3 % IND Blood Urea Nitrogen: 24 MG/DL 02/24/2018 24 mg/dL IND Calcium: 9.8 MG/DL 02/24/2018 9.8 mg/dL IND Chloride: 108 Mmol/L 02/24/2018 108 mmol/L IND Cholesterol: 164 MG/DL 02/24/2018 164 mg/dL IND Co2 Carbon Dioxide: 27 Mmol/L 02/24/2018 27 mmol/L IND Creatinine: 1.02 MG/DL 02/24/2018 1.02 mg/dL IND Eosinophil %: 3.6 % 02/24/2018 3.6 % IND Ferritin: 13.4 NG/ML 02/24/2018 13.4 NG/ML IND Globulin: 2.1 G/DL 02/24/2018 2.1 g/dL IND Glucose: 109 MG/DL 02/24/2018 109 mg/dL IND Granulocyte %: 63.6 % 02/24/2018 63.6 % IND HDL Cholesterol: 45.7 MG/DL 02/24/2018 45.7 mg/dL IND HIV Testing: Not Indicated due to age Not Indicated due to age IND 02/24/2018 Hematocrit: 34 % 02/24/2018 34 % IND Hemoglobin: 11 G/DL 02/24/2018 11 g/dL IND Hepatitis C Testing Already completed IND LDL Cholesterol: 92 MG/DL 02/24/2018 92 mg/dL IND Lymphocyte %: 22.5 % 02/24/2018 22.5 % IND Magnesium: 1.3 MG/DL 02/24/2018 1.3 mg/dL IND Mean Corpuscular HGB Conc: 33 G/DL 33 g/dL IND 02/24/2018 Mean Corpuscular Hemoglobin: 27 pg 27 pg IND 02/24/2018 Mean Corpuscular Volume: 82 fL 02/24/2018 82 fL IND Mean Platelet Volume: 9 fL 02/24/2018 9 fL IND Monocyte %: 9 % 02/24/2018 9 % IND Nucleated Red Blood Cells %: 0 0 IND 02/24/2018 O2 sat 97 IND Peak Flow: 280 02/24/2018 280 IND Platelet Count: 235 10 3/ul 02/24/2018 235 10_3/ul IND Potassium: 4.7 Mmol/L 02/24/2018 4.7 mmol/L IND Red Blood Count: 4.12 10 6/ul 02/24/2018 4.12 10_6/ul IND Red Cell Distribution Width: 15 % 15 % IND 02/24/2018 Sodium: 141 Mmol/L 02/24/2018 141 mmol/L IND Total Bilirubin: 0.4 MG/DL 02/24/2018 0.4 mg/dL IND Total Protein: 6.5 G/DL 02/24/2018 6.5 g/dL IND Triglycerides 131 mg/dL IND Vitamin B12: 465 PG/ML 02/24/2018 465 pg/mL IND White Blood Count: 6.8 10 3/ul 02/24/2018 6.8 10_3/ul IND eGFR : 64.8 02/24/2018 64.8 IND eGFR Non-: 53.6 53.6 IND 02/24/2018 Surgical Pathology 04/22/2013 [facility] [place] [facility] [place] DATE: 04/23/ <SEE NOTE> Xray 12/15/2012 [facility] [place] [facility] US Thyroid <pending> Clotest 11/14/2012 [facility] [place] Clotest (SEE NOTE) Xray 11/05/2012 [facility] [place] [facility] US Gall Bladder <pending> Xray 11/05/2012 [facility] [place] Radiology Abdomen (Complete) <pending> 2 VWS Xray 11/05/2012 [facility] [place] CT Abd/Pel W/O <pending> Xray 08/20/2012 [facility] [place] Radiology Chest PA & Lat 2 <pending> VWS Xray 06/16/2012 [facility] [place] Rad[facility] MRI Abdomen W/Wo <pending> Xray 06/16/2012 [facility] [place] Rad[facility] Chest Ap Portable <pending> Xray 06/16/2012 [facility] [place] CT Chest/Abd/Pel <pending> W/O Xray 06/16/2012 [facility] [place] Radiology US Gall Bladder <pending> Procedures Date Code Description Status 04/22/2013 64963 Colonscopy+Biopsy Completed 11/14/2012 75936 EGD+Biopsy Single Or Multiple Completed 11/08/2008 19596 Colonscopy+Biopsy Completed 11/09/2003 78279 Colonoscopy Completed Encounters Type Date Location Provider Dx Diagnosis Office Visit 03/30/2013 [facility], 285.9 Anemia Unspec 3:15p [facility]TER / [facility] V16.0 History Family Malignant Neoplasm Gastrointestinal Tract Office Visit 10/10/2012 [facility] [place] 789.06 Pain Abdominal 1:00p [facility] Ep[facility] 780.94 Early [facility]ety [facility] / [facility] 787.02 Nausea Alone 401.9 Hypertension Unspec 250.00 Diabetes Mellitus W/O Compl Type II Or Unspec Controlled Plan of Treatment Future Appointment(s):06/12/2018 12:15 pm - Fredrick Galicia DO at [facility]05/05/2018 - Fredrick Galicia DOZ80.0 Family history of malignant neoplasm of digestive qdrapzM06.9 Anemia, cvhehcbjkwjP90.5 Hemorrhage of anus and rectum
--- NOTE | 2018-05-11 17:59 | ED ---
Complex/Multi-Sys Presentation - HPI Summary HPI Summary: A 68 y/o F brought in by ambulance presents to ED with c/o mid-sternal low CP lasting 5-10 minutes onset at approx 1645 that has spontaneously resolved. She went to her friend's house this afternoon and was feeling at baseline. When she was getting ready to leave, she had a syncopal episode around [id number]. She went home, but started to feel CP. Associated sx: diaphoresis, nausea/vomiting, TEMPLE which has resolved, photophobia. Denies dizziness (room-spinning.) She states she has anxiety, but says this does not feel her anxiety. Pt given Zofran en route to ED. Alleviating: laying position. PMHx: HTN, anxiety. - History Of Current Complaint Chief Complaint: EDChestPainROMI Time Seen by Provider: 05/11/18 17:49 Hx Obtained From: Patient Onset/Duration: Sudden Onset, Lasting Minutes, Resolved Timing: Intermittent, Lasting: - 5-10 mins Alleviating Factor(s): laying position Associated Signs And Symptoms: Positive: Headache - resolved, Nausea, Vomiting, Diaphoresis, Other - pos: photophobia. Negative: Dizziness - Allergies/Home Medications Allergies/Adverse Reactions: Allergies Allergy/AdvReac Type Severity Reaction Status Date / Time Penicillins Allergy Intermediate Unknown Verified 06/11/17 17:53 Reaction Details ciprofloxacin [From Cipro] Allergy Agitation Verified 06/11/17 17:53 Latex, Natural Rubber Allergy Rash And Verified 06/11/17 17:53 Itching Iodinated Contrast- Oral and AdvReac Nausea And Verified 06/11/17 17:53 IV Dye Vomiting basil Allergy Severe Anaphylatic Uncoded 06/10/17 11:51 Shock pomagranate Allergy Mild GI Upset Uncoded 06/10/17 11:51 WASPS Allergy Swelling Uncoded 06/10/17 11:50 lobster AdvReac Intermediate Stomach Uncoded 06/10/17 11:51 Cramps PMH/Surg Hx/FS Hx/Imm Hx Previously Healthy: No Endocrine/Hematology History: Reports: Hx Diabetes Denies: Hx Blood Disorders, Hx Thyroid Disease, Hx Anemia Cardiovascular History: Reports: Hx Angina, Hx Hypertension Denies: Hx Congestive Heart Failure, Hx Coronary Artery Disease, Hx Hypercholesterolemia, Hx Myocardial Infarction, Hx Pacemaker/ICD, Hx Valvular Heart Disease, Other Cardiovascular Problems/Disorders Respiratory History: Reports: Hx Asthma, Hx Chronic Bronchitis - But not in a long time, Hx Pleural Effusion - 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 constipation History: Reports: Hx Kidney Infection - 1982, Hx Renal Disease, Other Problems/Disorders - uterine cancer, bladder cyst removal,complete hysterectomy , nephritis, pheo Musculoskeletal History: Reports: Hx Arthritis, Hx Back Problems Denies: Other Musculoskeletal History Sensory History: Reports: Hx Cataracts, Hx Contacts or Glasses Denies: Hx Hearing Aid, Other Sensory Impairments Opthamlomology History: Reports: Hx Cataracts, Hx Contacts or Glasses Denies: Other Sensory Impairments Psychiatric History: Reports: Hx Anxiety - Comes and goes, Hx Depression - but not since she retired, Hx Panic Disorder - ANXIETY Denies: Hx Suicide Attempt, Hx of Violent Episodes Against Others, Hx Substance Abuse, Other Psychiatric Issues/Disorders - Cancer History Cancer Type, Location and Year: UTERINE Hx Chemotherapy: No Hx Radiation Therapy: No - Surgical History Surgery Procedure, Year, and Place: TONSILS. HERNIA AGE 3. TUBAL LIGATION. 2010 HYSTERECTOMY. 2012 RIGHT ADRENAL REMOVED (PHEOCHROMOCYTOMA) Hx Anesthesia Reactions: No - Immunization History Date of Tetanus Vaccine: Up to date Date of Influenza Vaccine: Fall 2012 Infectious Disease History: No Infectious Disease History: Denies: Traveled Outside the [place] in Last 30 Days - Family History Known Family History: Positive: Cardiac Disease - father of [place] at 69 , Renal Disease, Other - CVA and cancer - Social History Occupation: Retired Lives: With Family Alcohol Use: None Hx Substance Use: No Substance Use Type: Reports: None Hx Tobacco Use: No Smoking Status (MU): Never Smoked Tobacco Review of Systems Positive: Skin Diaphoresis. Negative: Fever Positive: Photophobia Positive: Chest Pain Positive: Vomiting, Nausea Neurological: Other - neg: dizziness Positive: Headache All Other Systems Reviewed And Are Negative: Yes Physical Exam - Summary Physical Exam Summary: Appearance: The patient is well-nourished in no acute distress and in no acute pain. Skin: The skin is warm and dry and skin color reflects adequate perfusion. HEENT: The head is normocephalic and atraumatic. The pupils are equal and reactive. The conjunctivae are clear and without drainage. Nares are patent and without drainage. Mouth reveals moist mucous membranes and the throat is without erythema and exudate. The external ears are intact. The ear canals are patent and without drainage. The tympanic membranes are intact. Neck: the neck is supple with full range of motion and non-tender. There are no carotid bruits. There is no neck vein distension. Respiratory: Chest is non-tender. Lungs are clear to auscultation and breath sounds are symmetrical and equal. Cardiovascular: Heart is regular rate and rhythm. There is no murmur or rub auscultated. There is no peripheral edema and pulses are symmetrical and equal. Abdomen: The abdomen is soft. Tender in epigastrium. There are normal bowel sounds heard in all four quadrants and there is no organomegaly palpated. Musculoskeletal: There is no back tenderness noted. Extremities are non-tender with full range of motion. There is good capillary refill. There is no peripheral edema or calf tenderness elicited. Neurological: Patient is alert and oriented to person, place and time. The patient has symmetrical motor strength in all four extremities. Cranial nerves are grossly intact. Deep tendon reflexes are symmetrical and equal in all four extremities. Psychiatric: The patient has an appropriate affect and does not exhibit any anxiety or depression. Triage Information Reviewed: Yes Vital Signs On Initial Exam: Initial Vitals Temp Pulse Resp BP Pulse Ox 98.3 F 71 16 193/92 99 05/11/18 17:42 05/11/18 17:42 05/11/18 17:42 05/11/18 17:42 05/11/18 17:42 Vital Signs Reviewed: Yes Diagnostics - Vital Signs Vital Signs Temp Pulse Resp BP Pulse Ox 05/11/18 17:42 98.3 F 71 16 193/92 99 - Laboratory Result Diagrams: 05/11/18 20:17 05/11/18 20:17 Lab Statement: Any lab studies that have been ordered have been reviewed, and results considered in the medical decision making process. - Radiology CXR Radiology Interpretation Completed By: ED Physician Summary of Radiographic Findings: No acute process. - EKG 1754 Cardiac Rate: NL - 72bpm EKG Rhythm: Sinus Rhythm Summary of EKG Findings: Non-specific inferoseptal changes, present on last EKG on 12/04/17, but now more pronounced. Re-Evaluation - Re-Evaluation 1 Re-Evaluation Time: 21:37 Change: Unchanged Comment: Discussing results. Pt is feeling OK and is asymptomatic at this time. Will await a second troponin. Complex Multi-Symp Course/Dx Course Of Treatment: PATIENT WILL BE SIGNED OUT TO DR. BANUELOS AT SHIFT CHANGE PENDING 2ND TROPONIN. Assessment/Plan: Ms. Box presented to the emergency department after a syncopal episode. She was at a friend's house and had some chocolate cake and began to feel nauseated. She went out to her car and believes that she fainted while in the car. She went home and still felt nauseated and had some vague chest pain so she came to the hospital. She is particularly concerned because she has a history of a pheochromocytoma. At that time she had a syncopal episode. She was nontoxic in appearance with stable vital signs on presentation. Her laboratory workup so far is negative including a troponin. She is awaiting a delayed troponin. She feels fine at this point and I think that this sounds more like a vasovagal syncope and a second negative troponin would point towards discharge. - Diagnoses Provider Diagnoses: Syncope, vasovagal Discharge - Sign-Out/Discharge Documenting (check all that apply): Sign-Out Patient Signing out patient TO: Renaldo Banuelos - PENDING 2ND TROP Patient Received Moderate/Deep Sedation with Procedure: No - Discharge Plan Referrals: Jeri Gil MD [Primary Care Provider] - - Attestation Statements Document Initiated by Scribe: Yes Documenting Scribe: April Sr Provider For Whom Bertha is Documenting (Include Credential): Dr. Zak Lopez MD Scribe Attestation: I, April Sr, scribed for Dr. Zak Lopez MD on 05/11/18 at 2144. Scribe Documentation Reviewed: Yes Provider Attestation: The documentation as recorded by the April fuentes accurately reflects the service I personally performed and the decisions made by me, Dr. Zak Lopez MD Status of Scribe Document: Viewed
[2018-05-11 20:25] LABS: ABS Basophils 0.1 10^3/ul (0-0.2); ABS Eosinophils 0.2 10^3/ul (0-0.6); ABS Lymphocytes 1.3 10^3/ul (1.0-4.8); ABS Monocytes 0.6 10^3/ul (0-0.8); ABS Neutrophils 7.9 10^3/ul (1.5-7.7); ABS Nucleated RBC 0 10^3/ul; Eosinophil % 1.9 %; Hematocrit 33 % (33-41); Hemoglobin 11.2 g/dL (12.0-16.0); Lymphocyte % 13.1 %; Mean Corpuscular HGB Conc 34 g/dL (31-36); Mean Corpuscular Hemoglobin 28 pg (27-31); Mean Corpuscular Volume 82 fL (80-97); Mean Platelet Volume 7.8 fL (7.4-10.4); Nucleated Red Blood Cells % 0; Platelet Count 233 10^3/uL (150-450); Red Blood Count 4.04 10^6 /uL (3.70-4.87); Red Cell Distribution Width 14 % (10.5-15)
[2018-05-11 20:32] LABS: INR 0.95 (0.77-1.02)
[2018-05-11 20:43] LABS: Albumin 4.2 g/dL (3.2-5.2); Albumin/Globulin Ratio 1.7 (1-3); BUN/Creatinine Ratio 18.9 (8-20); Calcium 9.6 mg/dL (8.6-10.3); EGFR African American 52.7 (>60); EGFR Non-African American 43.6 (>60); Globulin 2.5 g/dL (2-4); Potassium 4.2 mmol/L (3.5-5.0); Total Bilirubin 0.3 mg/dL (0.2-1.0); Total Protein 6.7 g/dL (6.4-8.9)
[2018-05-11] MEDS ORDERED: NS 0.9% 1000 ML** 1,000 ML IV ONE (21:52)
--- NOTE | 2018-05-12 00:22 | ED ---
Progress - Progress Note Progress Note: Pt was signed out from Dr. Lopez upon shift change pending second troponin. Re-Evaluation - Re-Evaluation 1 Re-Evaluation Time: 21:37 Change: Unchanged Comment: Discussing results. Pt is feeling OK and is asymptomatic at this time. Will await a second troponin. Second Eval Re-Evaluation Time: 00:26 Change: Unchanged Comment: The patient states she passed out and then vomited. Patient stated she was at a friend's house, and decided to leave. She had a syncope in the car when she was alone, and then vomited while she was driving home. Course/Dx - Course Course Of Treatment: PATIENT WAS SIGNED OUT TO DR. BANUELOS AT SHIFT CHANGE PENDING 2ND TROPONIN. The patient states she passed out and then vomited. Patient stated she was at a friend's house, and decided to leave. She had a syncope in the car when she was alone, and then vomited while she was driving home. Consult with Dr. Black (hospitalist) at 0028. He agrees to admit the patient for further evaluation. - Diagnoses Provider Diagnoses: Syncope, vasovagal - Provider Notifications Discussed Care Of Patient With: Albert Black Time Discussed With Above Provider: 00:28 Instructed by Provider To: Other - Consult with Dr. Black (hospitalist) at 0028. He agrees to admit the patient for further evaluation. Discharge - Sign-Out/Discharge Documenting (check all that apply): Patient Departure - Admit to [facility], Receiving Sign-Out Receiving patient FROM: Zak Lopez - Upon shift change pending second troponin - Discharge Plan Condition: Stable Disposition: ADMITTED TO [facility] Referrals: Jeri Gil MD [Primary Care Provider] - - Attestation Statements Document Initiated by Scribe: Yes Documenting Scribe: Ella Gilbert Provider For Whom Scribe is Documenting (Include Credential): Dr. Renaldo Banuelos MD Scribe Attestation: I, Ella Gilbert, scribed for Dr. Renaldo Banuelos MD on 05/12/18 at 0032. Status of Scribe Document: Ready
[2018-05-12] MEDS ORDERED: LORazepam TAB(*) 0.5 MG PO PRN (00:37)
[2018-05-12] MEDS ORDERED: diPHENhydraMINE PO* 25 MG PO PRN (00:37)
--- NOTE | 2018-05-12 04:04 | ADMNOTE ---
Subjective Date of Service: 05/12/18 Interval History: HISTORY AND PHYSICAL PCP:Hellen Gil CC: syncope HPI: Patient is 68 year old woman with diabetes and h/o pheochromocytoma resection, who was visiting friend this evening. She walked to her car, and felt diaphoretic and weak. She apparently had loss of consciousness in car while seated, unwitnessed. She woke up seated, was able to drive half way home, then had to vomit on side of road. She completed her journey home, then felt nausea, dypnea, and epigastric pain at home, while lying on couch. She also had feet tingling, but no chest or arm pain. Her became concerned and called 911. Last admission was 12/03/17, had troponin elevation, attributed to uncontrolled hypertension. Family History: Findings - Father 69 of [place], Mother of colon cancer age 72, brother has bipolar and CAD Social History: Findings - Retired graphics production specialist from , , one daughter , never smoker, no alcohol/drug use Past Medical History: Findings - PMH: hypertension, type 2 diabetes, hyperlipidemia, paroxysmal a-fib, GERD; PSH: RT adrenalectomy due to pheo 2012, hysterectomy due to endometrial cancer Review of Systems - Measurements Intake and Output: Intake and Output Last 24 Hours 05/09/18 05/10/18 05/11/18 05/12/18 06:59 06:59 06:59 06:59 Weight 74.389 kg - Review of Systems Constitutional Symptoms: Positive: Fatigue Dermatology: Positive: Normal HEENT: Positive: Normal Eyes: Positive: Normal Thyroid: Positive: Normal Pulmonary: Positive: Shortness of Breath Cardiology: Positive: Shortness of Breath, Swelling of Ankles, Faintness, Syncope Negative: Chest Pain Gastroenterology: Positive: Abdominal Pain, Nausea, Vomiting Negative: Diarrhea Genital - Urinary: Positive: Normal Genitourinay - Female: Positive: Menopause Endocrinology: Positive: Diabetes Mellitus Neurology: Positive: Normal Psychiatry: Positive: Normal Objective Active Medications: Home Medications: Aspirin (Aspirin Ec Tab*) 81 mg PO DAILY [facility] Diphenhydramine HCl (Benadryl Po*) 25 mg PO Q6H PRN PRN Reason: Allergic reaction Labetalol HCl (Trandate Tab*) 150 mg PO BID [facility] Lorazepam (Ativan Tab(*)) 0.5 mg PO TID PRN PRN Reason: ANXIETY Losartan Potassium (Cozaar Tab*) 100 mg PO QPM [facility] Metformin HCl (Metformin Er (Nf)) 1,000 mg PO BID [facility] Non-Formulary Medication (Ubidecarenone [Coenzyme Q10]) 200 mg PO DAILY [facility] Omeprazole (Prilosec Cap*) 20 mg PO BEDTIME [facility] Pravastatin Sodium (Pravachol (Nf)) 40 mg PO QPM [facility]; Protocol Vital Signs - 8 hr 05/11/18 05/11/18 05/11/18 20:00 20:20 20:50 Temperature Pulse Rate 81 79 80 Respiratory Rate Blood Pressure 129/83 137/82 (mmHg) O2 Sat by Pulse 97 95 95 Oximetry 05/11/18 05/12/18 05/12/18 23:56 00:17 00:18 Temperature 37.1 C Pulse Rate 76 78 82 Respiratory 19 17 17 Rate Blood Pressure 133/74 141/82 134/88 (mmHg) O2 Sat by Pulse 96 95 97 Oximetry 05/12/18 05/12/18 00:29 00:52 Temperature 37.1 C Pulse Rate 85 69 Respiratory 17 17 Rate Blood Pressure 139/80 139/80 (mmHg) O2 Sat by Pulse 97 97 Oximetry Oxygen Devices in Use Now: None Appearance: alert, no distress Eyes: No Scleral Icterus Ears/Nose/Mouth/Throat: NL Teeth, Lips, Gums Neck: NL Appearance and Movements; NL JVP Respiratory: Symmetrical Chest Expansion and Respiratory Effort, Clear to Auscultation Cardiovascular: NL Sounds; No Murmurs; No JVD, RRR Abdominal: No Hepatosplenomegaly, - - positive BS, tender epigastric, no masses Lymphatic: No Cervical Adenopathy Extremities: No Edema Neurological: Alert and Oriented x 3 Lines/Tubes/Other Access: Clean, Dry and Intact Peripheral IV Result Diagrams: 05/11/18 20:17 05/11/18 20:17 Additional Lab and Data: Laboratory Tests 05/11/18 05/11/18 05/11/18 20:17 20:17 23:20 INR (Anticoag Therapy) 0.95 Lactic Acid AST 34 ALT 39 Troponin I 0.00 0.00 Total Protein 6.7 Albumin 4.2 05/12/18 05/12/18 02:33 02:33 INR (Anticoag Therapy) Lactic Acid 1.5 AST ALT Troponin I 0.00 Total Protein Albumin Diagnostic Imaging: CXR: no infiltrates or effusions EKG Data: NSR, RBBB Assess/Plan/Problems-Billing Assessment: 68 year old with syncope, possible exertional anginal equivalents - Patient Problems (1) Syncope Current Visit: Yes Status: Acute Priority: High Code(s): R55 - SYNCOPE AND COLLAPSE SNOMED Code(s): 487529593 Comment: -Differential would generally include orthostasis, seizure, arrhythmia, vasovagal episode, stroke. -In this patient's case, blood pressure variation and hypotension are likely. -Will monitor on telemetry for arrhythmia (2) Hypertension Current Visit: No Status: Acute Priority: Medium Code(s): I10 - ESSENTIAL (PRIMARY) HYPERTENSION SNOMED Code(s): 21431422 Comment: -For now will continue present medications, and monitor (3) Exertional angina Current Visit: Yes Status: Acute Priority: Medium Code(s): I20.8 - OTHER FORMS OF ANGINA PECTORIS SNOMED Code(s): 886609482 Comment: -episode of dyspnea, nausea, etc may be anginal equivalent -will plan stress test tomorrow Status and Disposition: observation
[2018-05-12] MEDS ORDERED: NS 0.9% 1000 ML** 1,000 ML IV SCH ×2 (04:15→08:56)
[2018-05-12] MEDS: COENZYME Q10 200 MG PO SCH (07:43)
--- NOTE | 2018-05-12 08:41 | PN ---
Subjective - Subjective Reason for Note: Discharge Note History: Contingent discharge summary: I obtained a history from the patient and the electronic medical records. She has a history of hypertension and takes 4 different anti-hypertensives. She had a right adrenalectomy for pheochromocytoma - the left side is being watched. After taking her medications in the morning, she usually has orthostatic hypotension afterwards and hence stays quiet. Yesterday: She took her medications at 11:30 am (usual time) and had breakfast. At 3 pm she had chocolate cake, coffee with [employer]'s sw[place] cream - she had felt a little fatigued and needed perking up. She has been doing this recently. She took her [place] to her friend who is making a portrait of her dog. She became diaphoretic while she was there. After staying 20 -30 mins she went to drive home. She had a syncopal episode. She was sitting upright when she regained consciousness - she doesn't know how long she was out. She had not been incontinent. She had no confusion. She was able to drive home. She developed pain under her ribs in the upper abdomen and became nauseated. She opened the window of her car and vomited x [address] Once home, she lay on the couch with her legs elevated. Her called 911 as she was unable to get to the car. She states the cold air on the way to the ambulance helped. But she required ondansetron 8 mg parenterally on the trip to the hospital. She states that her symptoms improved. At 3 am she had a turkey sandwich. The pain disappeared and she no longer has nausea. FH: No thyroid cancer, pheochromocytoma - has a grandparent who had hypertension and stroke. She did not have a restful night and hence is fatigued this morning, but has no other symptoms. She notes she and her had a "mysterious viral" illness - hers lasted 10 days at the end of March. Active Problems: Active Problems Exertional angina (Acute) I20.8 -episode of dyspnea, nausea, etc may be anginal equivalent -will plan stress test tomorrow Syncope (Acute) R55 -Differential would generally include orthostasis, seizure, arrhythmia, vasovagal episode, stroke. -In this patient's case, blood pressure variation and hypotension are likely. -Will monitor on telemetry for arrhythmia Vomiting (Acute) R11.10 GERD (gastroesophageal reflux disease) (Chronic) K21.9 Hepatomegaly (Chronic) R16.0 History of atrial fibrillation (Chronic) Z86.79 History of endometrial cancer (Chronic) Z85.42 History of pheochromocytoma (Chronic) Z86.018 Hyperlipidemia (Chronic) E78.5 Orthostatic hypotension (Chronic) I95.1 Type 2 diabetes mellitus (Chronic) Current Medications: Current Medications Amlodipine Besylate (Amlodipine Besylate) 6.25 mg PO BID [facility] Aspirin (Aspirin Ec Tab*) 81 mg PO DAILY [facility] Atorvastatin Calcium (Lipitor*) 10 mg PO QPM [facility]; Protocol Diphenhydramine HCl (Benadryl Po*) 25 mg PO Q6H PRN PRN Reason: Allergic reaction Escitalopram Oxalate (Lexapro *) 5 mg PO DAILY [facility]; Protocol Heparin Sodium (Porcine) (Heparin Vial(*)) 5,000 units SUBCUT Q12HR [facility] Sodium Chloride (Ns 0.9% 1000 Ml) 1,000 mls @ 100 mls/hr IV PER RATE [facility] Last Admin: 05/12/18 05:58 Dose: 100 mls/hr Labetalol HCl (Trandate Tab*) 150 mg PO BID [facility] Lorazepam (Ativan Tab(*)) 0.5 mg PO TID PRN PRN Reason: ANXIETY Losartan Potassium (Cozaar Tab*) 100 mg PO QPM [facility] Metformin HCl (Metformin Er (Nf)) 1,000 mg PO BID [facility] Last Admin: 05/12/18 07:43 Dose: Not Given [Coenzyme Q10] 200 (Mg)) 200 mg PO DAILY [facility] Last Admin: 05/12/18 07:43 Dose: Not Given Pantoprazole Sodium (Protonix Tab*) 40 mg PO BEDTIME [facility] Home Medications: Home Medications Medication Instructions Recorded Confirmed Type EPINEPHrine PEN ADULT(NF) [Epipen 0.3 mg IM DAILY PRN 11/05/12 05/11/18 History ADULT(NF)] diPHENhydraMINE PO* [Benadryl TAB*] 25 mg PO Q6H PRN 11/05/12 05/11/18 History Aspirin EC TAB* [Ecotrin EC Low 81 mg PO DAILY 03/09/13 05/11/18 History Dose 81 MG*] LORazepam TAB(*) [Ativan 0.5 MG 0.5 mg PO TID PRN 05/07/14 05/11/18 History TAB (*)] Biotin 1 mg PO QPM 12/03/17 05/11/18 History Cholecalciferol (Vitamin D3) 1,000 unit PO QPM 12/03/17 05/11/18 History [Vitamin D3] Cyanocobalamin TAB* [Vitamin B12 1,000 mcg PO DAILY 12/03/17 05/11/18 History TAB*] Iron 27 mg PO BID 12/03/17 05/11/18 History Labetalol TAB* [Trandate TAB*] 200 mg PO BID 12/03/17 05/12/18 History Losartan TAB* [Cozaar TAB*] 100 mg PO QPM 12/03/17 05/11/18 History Magnesium Oxide [Magnesium] 250 mg PO QAM 12/03/17 05/11/18 History Metformin ER (NF) 1,000 mg PO BID 12/03/17 05/11/18 History Milk Thistle 600 mg PO DAILY 12/03/17 05/11/18 History Multivitamins/Minerals TAB* 1 tab PO DAILY 12/03/17 05/11/18 History [Theragran/minerals TAB*] Omeprazole CAP (NF) [Prilosec CAP* 20 mg PO BEDTIME 12/03/17 05/11/18 History 20 MG] Pravastatin (NF) [Pravachol (NF)] 40 mg PO QPM 12/03/17 05/11/18 History Ubidecarenone [Coenzyme Q10] 200 mg PO DAILY 12/03/17 05/11/18 History Vitamin B Complex CAP* [B Complex 1 cap PO DAILY 12/03/17 05/11/18 History CAP*] metFORMIN* [Glucophage 500 MG TAB 500 mg PO DAILY PRN 12/03/17 05/11/18 History *] Amlodipine Besylate [Amlodipine 2.5 tab PO BID 05/12/18 05/12/18 History 2.5 mg tab] Escitalopram * [Lexapro 5 mg (NF)] 5 mg PO DAILY 05/12/18 05/12/18 History Allergies: Allergies Allergy/AdvReac Type Severity Reaction Status Date / Time Penicillins Allergy Intermediate Unknown Verified 06/11/17 17:53 Reaction Details ciprofloxacin [From Cipro] Allergy Agitation Verified 06/11/17 17:53 Latex, Natural Rubber Allergy Rash And Verified 06/11/17 17:53 Itching Iodinated Contrast- Oral and AdvReac Nausea And Verified 06/11/17 17:53 IV Dye Vomiting basil Allergy Severe Anaphylatic Uncoded 06/10/17 11:51 Shock pomagranate Allergy Mild GI Upset Uncoded 06/10/17 11:51 WASPS Allergy Swelling Uncoded 06/10/17 11:50 lobster AdvReac Intermediate Stomach Uncoded 06/10/17 11:51 Cramps Objective - Vital Signs Vital Signs: Vital Signs 05/11/18 05/11/18 05/11/18 17:42 17:51 18:20 Temperature 98.3 F Pulse Rate 71 70 75 Respiratory 16 Rate Blood Pressure 193/92 193/92 176/92 (mmHg) O2 Sat by Pulse 99 99 99 Oximetry 05/11/18 05/11/18 05/11/18 18:50 19:00 19:20 Temperature Pulse Rate 79 78 77 Respiratory Rate Blood Pressure 160/88 141/83 (mmHg) O2 Sat by Pulse 99 99 95 Oximetry 05/11/18 05/11/18 05/11/18 19:50 20:00 20:20 Temperature Pulse Rate 79 81 79 Respiratory Rate Blood Pressure 133/78 129/83 (mmHg) O2 Sat by Pulse 97 97 95 Oximetry 05/11/18 05/11/18 05/11/18 20:50 21:00 21:20 Temperature Pulse Rate 80 79 82 Respiratory Rate Blood Pressure 137/82 132/75 (mmHg) O2 Sat by Pulse 95 97 95 Oximetry 05/11/18 05/11/18 05/11/18 21:50 22:00 22:20 Temperature Pulse Rate 79 78 78 Respiratory Rate Blood Pressure 128/83 138/76 (mmHg) O2 Sat by Pulse 96 96 96 Oximetry 05/11/18 05/11/18 05/11/18 22:50 23:00 23:21 Temperature Pulse Rate 72 71 72 Respiratory Rate Blood Pressure 133/78 148/73 (mmHg) O2 Sat by Pulse 96 96 97 Oximetry 05/11/18 05/11/18 05/12/18 23:50 23:56 00:17 Temperature 98.7 F Pulse Rate 75 76 78 Respiratory 19 17 Rate Blood Pressure 137/87 133/74 141/82 (mmHg) O2 Sat by Pulse 96 96 95 Oximetry 05/12/18 05/12/18 05/12/18 00:18 00:29 00:52 Temperature 98.7 F Pulse Rate 82 85 69 Respiratory 17 17 17 Rate Blood Pressure 134/88 139/80 139/80 (mmHg) O2 Sat by Pulse 97 97 97 Oximetry 05/12/18 05/12/18 05/12/18 01:14 01:51 04:51 Temperature 97.8 F 98.1 F Pulse Rate 77 81 Respiratory 17 16 16 Rate Blood Pressure 148/65 137/63 (mmHg) O2 Sat by Pulse 94 95 Oximetry 05/12/18 07:27 Temperature 98.0 F Pulse Rate 77 Respiratory 16 Rate Blood Pressure 130/59 (mmHg) O2 Sat by Pulse 96 Oximetry - Intake and Output Intake and Output: Intake & Output 05/09/18 05/10/18 05/11/18 05/12/18 11:59 11:59 11:59 11:59 Intake Total 0 Balance 0 Weight 168 lb 12.8 oz Intake: Oral 0 Other: Estimated Void Medium # Bowel Movements 0 # Voids 1 ADLs: Meal Record Start: 05/12/18 01: 14 Freq: DAILY@0900,1400,1800 Status: Active Protocol: Created 05/12/18 01:14 System (Rec: 05/12/18 01:14 System [id number]) Intake and Output Start: 05/11/18 17: 51 Freq: Status: Active Protocol: Created 05/11/18 17:51 System (Rec: 05/11/18 17:51 System [id number]) Intake and Output Start: 05/12/18 01: 14 Freq: DAILY@0600,1400,2200 Status: Active Protocol: Created 05/12/18 01:14 System (Rec: 05/12/18 01:14 System [email or web address]) Document 05/12/18 06:00 [id number] (Rec: 05/12/18 06:20 [id number]) - Physical Exam General Physical Exam Comment: Warm and well perfused, in no acute distress, hemodynamically stable General: No Cyanosis, No Anemia, No Jaundice, No Clubbing Skin: Normal: Rash Thyroid Function: Clinically Euthyroid -: No Goiter, No Thyroid Nodule Endocrine: No Central Obesity, No Hirsuitism, No Virilism, No Acromegaly, No Vitiligo, No Flushing, No Acanthosis nigricans, No Violaceious striae, No Nima Syndrome, No Buccal pigmenatation, No Ramsey Crease Pigmentation Lungs and Chest: Yes: Chest Expansion Full, Chest Expansion Symetrica, Percussion Note Resonant, Vessicular Breath Sounds, Crackles - a few basal crackles. No: Wheezes, Respiratory Distress, Use of Accessory Muscles Heart Rate and Rhythm: Regular JVP: Not Elevated Additional Cardiovascular: Yes: Normal Heart Sounds. No: Heart Murmur, Pedal Edema Abdominal Exam: Yes: Soft, Hepatomegaly - 4 finger breadths - soft, smooth, not nodular., Bowel Sounds Present. No: Distention, Abdominal Mass, Splenomegaly, Abdominal Tenderness, Guarding, Rebound Tenderness - Extremities Cranial Nerves II-XII Intact: Yes Limbs: Normal Power, Normal Tone, Normal Coordination - Normal finger-nose/heel- denney, alt. movts - Neuro Orientation: A/O x3 Psychiatric: Normal Speech: Normal Results - Results Lab Results: Laboratory Results - last 24 hr 05/11/18 05/11/18 05/11/18 20:17 20:17 20:17 WBC 10.0 RBC 4.04 Hgb 11.2 L Hct 33 MCV 82 MCH 28 MCHC 34 RDW 14 Plt Count 233 MPV 7.8 Neut % (Auto) 78.5 Lymph % (Auto) 13.1 Ellis % (Auto) 5.8 Eos % (Auto) 1.9 Baso % (Auto) 0.7 Absolute Neuts (auto) 7.9 H Absolute Lymphs (auto) 1.3 Absolute Monos (auto) 0.6 Absolute Eos (auto) 0.2 Absolute Basos (auto) 0.1 Absolute Nucleated RBC 0 Nucleated RBC % 0 INR (Anticoag Therapy) 0.95 Sodium 138 Potassium 4.2 Chloride 105 Carbon Dioxide 25 Anion Gap 8 BUN 23 Creatinine 1.22 H Est GFR ( Amer) 52.7 Est GFR (Non-Af Amer) 43.6 BUN/Creatinine Ratio 18.9 Glucose 141 H POC Glucose (mg/dL) Lactic Acid Calcium 9.6 Total Bilirubin 0.30 AST 34 ALT 39 Alkaline Phosphatase 59 Troponin I 0.00 Total Protein 6.7 Albumin 4.2 Globulin 2.5 Albumin/Globulin Ratio 1.7 05/11/18 05/11/18 05/12/18 20:17 23:20 02:33 WBC RBC Hgb Hct MCV MCH MCHC RDW Plt Count MPV Neut % (Auto) Lymph % (Auto) Ellis % (Auto) Eos % (Auto) Baso % (Auto) Absolute Neuts (auto) Absolute Lymphs (auto) Absolute Monos (auto) Absolute Eos (auto) Absolute Basos (auto) Absolute Nucleated RBC Nucleated RBC % INR (Anticoag Therapy) Sodium Potassium Chloride Carbon Dioxide Anion Gap BUN Creatinine Est GFR ( Amer) Est GFR (Non-Af Amer) BUN/Creatinine Ratio Glucose POC Glucose (mg/dL) Lactic Acid 2.7 H* 1.5 Calcium Total Bilirubin AST ALT Alkaline Phosphatase Troponin I 0.00 Total Protein Albumin Globulin Albumin/Globulin Ratio 05/12/18 05/12/18 02:33 07:34 WBC RBC Hgb Hct MCV MCH MCHC RDW Plt Count MPV Neut % (Auto) Lymph % (Auto) Ellis % (Auto) Eos % (Auto) Baso % (Auto) Absolute Neuts (auto) Absolute Lymphs (auto) Absolute Monos (auto) Absolute Eos (auto) Absolute Basos (auto) Absolute Nucleated RBC Nucleated RBC % INR (Anticoag Therapy) Sodium Potassium Chloride Carbon Dioxide Anion Gap BUN Creatinine Est GFR ( Amer) Est GFR (Non-Af Amer) BUN/Creatinine Ratio Glucose POC Glucose (mg/dL) 94 Lactic Acid Calcium Total Bilirubin AST ALT Alkaline Phosphatase Troponin I 0.00 Total Protein Albumin Globulin Albumin/Globulin Ratio Radiology Results: Patient Name: EMILIO ROMAN Medical Record#: [id number] Ordering Physician: Zak Lopez MD Acct.#: [id number] : 1950 Age: 68 Sex: F Location: [address] [place] [address]/TELEMETRY Exam Date: 05/11/181958 ADM Status: ADM Johnson Order Information: CHEST AP OR PORT Accession Number: [id number] CPT: 58972 Indication: Chest pain. Single frontal view of the chest performed at 2004 hours was reviewed. Comparison is made with previous exam dated November 19, 2017. No mediastinal shift is noted. Heart is of normal size and configuration. Lung weeks appear clear. IMPRESSION: NO ACTIVE CARDIOPULMONARY DISEASE IS NOTED. <Electronically signed by Clau Escamilla MD in OV> 05/12/18746 Dictated By: Clau Escamilla MD Dictated Date/Time: 05/12/18746 Transcribed Date/Time: 05/12/18743 Copy to: CC:Jeri Gil MD; Albert Black MD; Zak Lopez MD Imaging - [facility] Imaging - [facility] Imaging - [facility] [address] [facility] [address] ph [phone] ph ([phone]) ph ([phone]) This report is only to be considered final once signed by the Provider(s) as displayed in the "<Electronically Signed by >" field (s). Absence of a signature indicates the report is in a draft status and still needs to be finalized. In the event this document was created by someone other than the signing Provider, the individual initiating the document will be listed in the "Entered by:" or "Dictated by:" weeks. 1 of 1 EKG Report: sinus rhythm 72 OK 152 QTc 419 [place] 65 RBB Telemetry sinus rhythm Assessment - Problem List Assessment: Patient Problems Exertional angina (Acute) Syncope (Acute) Vomiting (Acute) GERD (gastroesophageal reflux disease) (Chronic) Hepatomegaly (Chronic) History of atrial fibrillation (Chronic) History of endometrial cancer (Chronic) History of pheochromocytoma (Chronic) Hyperlipidemia (Chronic) Orthostatic hypotension (Chronic) Type 2 diabetes mellitus (Chronic) Hypertension (Acute) Plan: Syncope (Acute)Vomiting (Acute) She had an episode of diaphoresis, followed by syncope and vomiting. This was associated with some upper abdominal pain. She has daily episodes of orthostatic hypotension after taking her 4 antihypertensives. She had coffee with [employer]'s [place] cream shortly before the episode. Dr Black's differential diagnosis: orthostasis, seizure, arrhythmia, vasovagal episode, stroke. I doubt seizure from history. She has remained in sinus rhythm overnight making atrial fib less likely, but not impossible. Vasovagal episode seems most likely - triggered perhaps by the Elodia's ( alcohol plus cream), I doubt stroke/TIA as she has no physical signs. I will add to that list an acute gallbladder episode, acute adrenal insufficiency and hypoglycemia. I will check her gallbladder Exertional angina (Acute) Dr Black added "anginal equivalent" given her risk factors and gender. She is due for a stress test. I will hold her amlodipine today - she can have her other anti-hypertensives. If she has a negative stress test and is back to baseline, I will discharge her later today for outpatient management. Secondary diagnoses: GERD (gastroesophageal reflux disease) (Chronic) Hepatomegaly (Chronic) History of atrial fibrillation (Chronic) History of endometrial cancer (Chronic) History of pheochromocytoma (Chronic) Hyperlipidemia (Chronic) Orthostatic hypotension (Chronic) Type 2 diabetes mellitus (Chronic) Hypertension (Acute) I discussed the above with the patient and she agreed with the plan.
[2018-05-12] MEDS ORDERED: Labetalol TAB* 100 MG PO SCH (09:00)
[2018-05-12] MEDS ORDERED: AMLODIPINE 2.5 MG TAB (NF) PO SCH (09:00)
[2018-05-12] MEDS ORDERED: Metformin ER (NF) 500 MG TAB PO SCH (09:00)
[2018-05-12] MEDS: Aspirin EC TAB* 81 MG TAB.EC PO SCH (09:04)
[2018-05-12] MEDS: Heparin VIAL(*) 5000 UNITS/ML VIAL (FIVE THOUSAND) SUBCUT SCH ×2 (09:04→20:54)
[2018-05-12] MEDS: Escitalopram * 5 MG TAB PO SCH (09:04)
[2018-05-12] MEDS ORDERED: Regadenoson* 0.4 MG/5 ML SYRINGE ONE (12:50)
[2018-05-12] MEDS ORDERED: Aminophylline IV* 25 MG/ML 10 ML VIAL ONE (12:57)
[2018-05-12] MEDS ORDERED: Losartan TAB* 25 MG PO SCH (18:00)
[2018-05-12] MEDS ORDERED: Atorvastatin* 10 MG TAB PO SCH (18:00)
[2018-05-12] MEDS ORDERED: Acetaminophen TAB* 325 MG PO PRN (20:05)
[2018-05-12] MEDS ORDERED: Pantoprazole TAB * 40 MG TAB PO SCH (21:00)
[2018-05-13] MEDS: COENZYME Q10 200 MG PO SCH (07:11)
[2018-05-13] MEDS: Escitalopram * 5 MG TAB PO SCH (09:42)
[2018-05-13] MEDS: Aspirin EC TAB* 81 MG TAB.EC PO SCH (09:43)
[2018-05-13] MEDS: Heparin VIAL(*) 5000 UNITS/ML VIAL (FIVE THOUSAND) SUBCUT SCH (09:43)
[2018-05-13 09:50] LABS: ABS Basophils 0.1 10^3/ul (0-0.2); ABS Eosinophils 0.2 10^3/ul (0-0.6); ABS Lymphocytes 1.5 10^3/ul (1.0-4.8); ABS Monocytes 0.5 10^3/ul (0-0.8); ABS Neutrophils 2.5 10^3/ul (1.5-7.7); ABS Nucleated RBC 0 10^3/ul; Eosinophil % 4.1 %; Hematocrit 33 % (33-41); Lymphocyte % 30.7 %; Mean Corpuscular HGB Conc 34 g/dL (31-36); Mean Corpuscular Hemoglobin 28 pg (27-31); Mean Corpuscular Volume 82 fL (80-97); Mean Platelet Volume 7.8 fL (7.4-10.4); Nucleated Red Blood Cells % 0.1; Platelet Count 216 10^3/uL (150-450); Red Blood Count 4.01 10^6 /uL (3.70-4.87); Red Cell Distribution Width 14 % (10.5-15); White Blood Count 4.8 10^3/uL (3.5-10.8)
[2018-05-13 10:08] LABS: Albumin 4.2 g/dL (3.2-5.2); Albumin/Globulin Ratio 1.7 (1-3); BUN/Creatinine Ratio 23.6 (8-20); C Reactive Protein 1.16 mg/L (<8.01); Calcium 9.4 mg/dL (8.6-10.3); EGFR Non-African American 51.2 (>60); Globulin 2.5 g/dL (2-4); Potassium 4.4 mmol/L (3.5-5.0); Total Bilirubin 0.4 mg/dL (0.2-1.0); Total Protein 6.7 g/dL (6.4-8.9)
[2018-05-13 11:46] VITALS: BP 137/75
== END 2018-05-13 15:11 | disposition home or self-care (01) ==
LOC: ED 17:37 → MEDTELE 05-12 00:34
PROVIDERS: ADMIT Internal Medicine; ATTEND Internal Medicine Geriatric Medicine
DX: R55 Syncope and collapse (principal); E11.9 Type 2 diabetes mellitus without complications; I10 Essential (primary) hypertension; E78.5 Hyperlipidemia, unspecified; Z88.1 Allergy status to other antibiotic agents; Z88.0 Allergy status to penicillin; Z88.9 Allergy status to unspecified drugs, medicaments and biological substances
CPT/HCPCS: 36415; 71045; 76705; 78452; 80053; 82533; 83605; 83690; 84484; 85025; 85610; 86140; 93005; 93017; 93306; 96361; 96372; 96374; 99285; A9270-GY; A9502; G0378; J0280; J1644; J2785

== ENCOUNTER 2023-10-26 08:57 | Observation (INO) ==
[2023-10-26] MEDS: Lactated Ringers 1000 ml BAG 1,000 ML IV ONE (09:50)
[2023-10-26 09:52] LABS: ABS Basophils 0.1 10^3/uL (0.0-0.1); ABS Eosinophils 0.3 10^3/uL (0.0-0.5); ABS Lymphocytes 1.6 10^3/uL (1.0-4.8); ABS Monocytes 0.8 10^3/uL (0.0-0.9); ABS Neutrophils 7.1 10^3/uL (1.5-7.6); Eosinophil % 2.7 %; Hematocrit 34.8 % (35-45); Hemoglobin 11.4 g/dL (11.5-14.3); Mean Corpuscular Hemoglobin 27.7 pg (27-33); Mean Corpuscular Hgb Conc 32.9 g/dL (31-36); Mean Corpuscular Volume 84.3 fL (80-97); Mean Platelet Volume 8.7 fL (7.5-11.2); Platelet Count 206 10^3/uL (150-450); Red Blood Count 4.13 10^6/uL (3.63-4.92); Red Cell Distribution Width 14.4 % (12-17); White Blood Count 9.8 10^3/uL (3.8-11.8)
[2023-10-26 10:10] LABS: INR 1.06 (0.85-1.14)
[2023-10-26 10:36] LABS: Creatinine, Serum 1.01 mg/dL (0.51-0.95); Potassium 4.2 mmol/L (3.5-5.0); Total Bilirubin 0.5 mg/dL (0.2-1.0); eGFR CKD-EPI 58.1 (>60)
[2023-10-26 11:37] LABS: High Sensitivity Troponin 1 Hr 8 pg/mL (<15)
[2023-10-26] MEDS ORDERED: Ondansetron 4 mg VIAL 2 MG/ML 2 ml VIAL IV PRN (12:28)
[2023-10-26] MEDS ORDERED: Dextrose 50% Syringe 50 ml 25 GM/50 ML SYRINGE IV PUSH PRN (12:29)
[2023-10-26 14:53] LABS: TSH Ultra Thyroid Stim Horm 3.03 mcIU/mL (0.34-5.60)
[2023-10-27 07:29] LABS: Calcium 10.3 mg/dL (8.6-10.3); Creatinine, Serum 1.07 mg/dL (0.51-0.95); Magnesium 1.7 mg/dL (1.9-2.7); Potassium 4.2 mmol/L (3.5-5.0); eGFR CKD-EPI 54.2 (>60)
[2023-10-27] MEDS: Cholecalciferol (VIT D3) 1,000 unit TAB PO SCH (08:22)
[2023-10-27] MEDS: Multivitamins/Minerals TAB PO SCH (08:22)
[2023-10-27] MEDS: Aspirin EC 81 mg TAB.EC (enteric coated) PO SCH (08:24)
[2023-10-27] MEDS: Magnesium Sulfate 2 gm BAG 2 GM/50 ML BAG IVPB ONE (10:26)
[2023-10-27] MEDS: Insulin GLARGINE 100 un/ml 10 ml VIAL SUBCUT SCH (17:44)
[2023-10-28] MEDS: Sulfur Hexaflouride MICROSPHR 25 MG VIAL IV PRN (11:03)
[2023-10-28 14:31] VITALS: BP 109/61
== END 2023-10-28 15:30 | disposition home or self-care (01) ==
LOC: EDHOLD 08:57 → ED 08:57 → MEDTELE 19:17
PROVIDERS: ADMIT Student in an Organized Health Care Education/Training Program; ATTEND Student in an Organized Health Care Education/Training Program